=== PATIENT | male | born 1970 | race Caucasian/White ===

== ENCOUNTER 2023-06-29 08:16 | Emergency (ER) | payer BC, SELFPAY ==
[2023-06-29] VITALS (9 sets, daily range): BP systolic 142–180; BP diastolic 89–102; PULSE 55–62; RESP 16; TEMP 36.6; O2SAT 94–98; BMI 25.1
--- NOTE | 2023-06-29 08:20 | ED.CHESTPAIN ---
HPI - Chest Pain General Time Seen by Provider: 08:20 Date Seen: 06/29/23 Chief Complaint: Chest Pain Stated Complaint: chest pain, pain in L arm Time Seen by Provider: 06/29/23 08:20 Source: patient and RN notes reviewed Mode of arrival: ambulatory Limitations: no limitations History of Present Illness HPI narrative: Chang is a 52-year-old male coming in with concern of some chest discomfort coupled with bilateral arm pain. When he awoke at 4:00 a.m. this morning he noted bilateral arm discomfort and numbness tingling feeling. He states he moves about in his sleep, will sleep on his side sometimes. He had a similar episode about a week ago but it went away quickly. It is an achiness in the arms, not truly pain but a discomfort. He feels pain up into the shoulder area as with this. Seemed to last a little longer, with this this morning he had just a sense of discomfort in his upper chest. Symptoms seem to go away but then came back and now he just feels like he can not really Street in his right hand. Still has the arm sensation bilaterally. There is no sense of palpitations, no irregular heartbeat. No associated shortness of breath. There is no pleuritic pain with this. Not been sick with anything, no cough or cold symptoms, no fevers. He has hypertension, is on amlodipine. He does not take any cholesterol medicine, does not take any aspirin. His dad has hypertension but he is not aware of anybody in the family that has any history of cardiac disease like heart attack or stent placement, no history of strokes that he is aware of. He drinks socially, no alcohol use last night. No tobacco products. Related Data Home Medications Medication Instructions Recorded Confirmed amlodipine 06/29/23 Previous Rx's Medication Instructions Recorded methylprednisolone 4 mg tablets in See Rx Instructions PO .COMPLEX 06/29/23 a dose pack (Medrol (Joe)) #21 ea Allergies Allergy/AdvReac Type Severity Reaction Status Date / Time No Known Drug Allergies Allergy Verified 06/29/23 08:27 Review of Systems Status of ROS Reports: 6 or more systems reviewed and unremarkable except as noted in History and below PFSH PFSH Social History Smoking Status: Never smoker How often do you have a drink containing alcohol: 2-4 times a month How many standard drinks containing alcohol do you have on a typical day: 1 or 2 AUDIT-C Alcohol total score: 2 Non-prescribed substance use: denies use Exam Const Vital Signs, click to edit/add: Vital Signs - 24 hr 06/29/23 08:25 06/29/23 08:29 06/29/23 08:31 Temperature 97.9 F Pulse Rate 55 L 56 L Pulse Rate [Right Pulse Oximeter] 59 L Respiratory Rate 16 Blood Pressure [Right Upper Arm] 167/102 H Pulse Oximetry 97 98 97 Oxygen Delivery Method Room Air 06/29/23 08:58 06/29/23 11:07 Temperature Pulse Rate Pulse Rate [Right Pulse Oximeter] 60 58 L Respiratory Rate 16 16 Blood Pressure [Right Upper Arm] 180/100 H 142/89 H Pulse Oximetry 95 95 Oxygen Delivery Method Room Air Room Air Patient is a 52-year-old male ambulatory into the ED of his own accord. He is alert, interactive, no apparent distress. Symmetrical facial function, speech normal. Conjunctiva slightly injected but no periorbital erythema or swelling, no drainage noted. Neck is supple, no midline tenderness, no jugular venous distension, no cervical adenopathy or masses, no thyromegaly masses or nodules. Patient is able to sit up, he has clear lung sounds, no tachypnea, no increased work of breathing. CV regular rate and rhythm, no murmur, normal S1 and S2, no S3 or S4. Abdomen is soft, no rebound or guarding, no organomegaly, nontender nondistended. He has no lower extremity edema. His hands have symmetric warmth, good peripheral pulses, normal cap refill. He does have good hand cryptologic technician strength bilaterally but just feels like he cannot fully straighten his hand out with the fingers. I am able to put his fingers in full extension and he can hold it. Documenting provider has reviewed patient's vital signs: yes Course Course ED Course: First and foremost reviewed with Chang that we will certainly look at cardiac causes of his symptoms. Will give him 324 mg aspirin, obtain EKG, will be on cardiac monitoring and pulse oximetry. Will get appropriate labs. Other considerations are possible developing cervical issues. Will do a total CK but doubt that this is something like myositis. He is not on any cholesterol medicine. If his initial troponin and EKG are stable, may re-evaluate better musculoskeletal exam and consideration of potentially even some cervical spine x-rays. Reevaluation(s) Time of Reevaluation #1: 09:30 Reevaluation #1: Reviewed with patient his chest x-ray is looking normal, initial troponin is normal. He is still feeling a little upper chest discomfort, left arm symptoms are completely gone but he does feel some pain from his right neck that does go down into the left arm, states he really can not straighten his fingers out in his right hand. There is no numbness tingling at this point. He has good range of motion of his neck. He has normal sensation and warmth in this right extremity. I am able to straighten his fingers, he has symmetrical hand cryptologic technician strength, 5/5. He has symmetric strength throughout the arm except for he does not feel like he can extend his fingers fully throughout this right hand. He did actually go to work this morning, found that he could not type with his right hand. He did take his amlodipine this morning, did review with him his blood pressure is mildly elevated. I am going to touch base with Neurology at [facility]. I am wondering if this could potentially be radiculopathy, cervical in nature. It just does not seem to make sense that this would be a central process given he initially had some left arm symptoms with it as well. We will continue to look at coronary etiologies as well, he understands he will be having a 3 hour troponin and EKG. Consultations Consultation #1: Spoke with Dr. Dae Collins Neurology. He agrees that we should proceed with a cervical spine MRI. He agrees that we do not need to proceed with any stroke workup given that he had bilateral arm symptoms. We will push the imaging to him, I will contact him once this has been read by Radiology. We will make further plans based on that. I will update the patient on the plan. Time: 09:59 Consultation #2: Spoke with Dr. Pearl. He cannot see the images, will talk to Radiology. Did read him the report. He is going to consult on this patient and see him. Time: 13:12 Consultation #3: Dr. Pearl has had a chance to evaluate this patient. He is finding a right wrist drop. He states this is likely radial nerve/ulnar nerve distribution. It could be a brachial plexopathy, is certainly peripheral. There is a remote possibility of this being parsonage Mckeon syndrome. He did recommend Medrol Dosepak. He did ask if I would do vascular labs so they would be back when patient followed up with Neurology. We will add on a sed rate LOLITA hepatitis-B surface antigen hepatitis-C antibody Anca and rheumatoid factor. This was all related to the patient. Time: 14:30 Vital Signs Vital signs: Initial Vital Signs Temperature 97.9 F 06/29/23 08:25 Temperature Source Temporal Artery Scan 06/29/23 08:25 Pulse Rate 59 L 06/29/23 08:25 Pulse Rhythm Regular 06/29/23 08:25 Respiratory Rate 16 06/29/23 08:25 Blood Pressure 167/102 H 06/29/23 08:25 Blood Pressure Mean 123 H 06/29/23 08:25 Blood Pressure Position Sitting 06/29/23 08:25 Pulse Oximetry 97 06/29/23 08:25 Oxygen Delivery Method Room Air 06/29/23 08:25 Vital Signs Temperature 97.9 F 06/29/23 08:25 Pulse Rate 59 L 06/29/23 08:25 Respiratory Rate 16 06/29/23 08:25 Blood Pressure 167/102 H 06/29/23 08:25 Pulse Oximetry 97 06/29/23 08:25 Oxygen Delivery Method Room Air 06/29/23 08:25 Temperature 97.9 F 06/29/23 08:25 Pulse Rate 58 L 06/29/23 11:07 Respiratory Rate 16 06/29/23 11:07 Blood Pressure 142/89 H 06/29/23 11:07 Pulse Oximetry 95 06/29/23 11:07 Oxygen Delivery Method Room Air 06/29/23 11:07 MDM - Chest Pain Lab Data Attestation: I reviewed the patient's lab results. Labs: Lab Results 06/29/23 06/29/23 06/29/23 Range/Units 08:26 08:35 12:07 WBC 5.02 (4.50-11.00) K/uL RBC 5.36 (4.30-5.90) m/uL Hgb 17.0 (13.5-17.5) gm/dL Hct 49.3 (37.0-53.0) % MCV 92 (80-100) fL MCH 32 (26-34) pg MCHC 35 (32-36) gm/dL RDW Coeff of Ian 12.4 (11.5-15.5) % Plt Count 258 (140-440) K/uL Neut % (Auto) 51.3 (42.0-72.0) % Lymph % (Auto) 36.9 (20-44) % Anderson % (Auto) 8.0 (0.0-11.0) % Eos % (Auto) 3.2 (0.0-7.0) % Baso % (Auto) 0.4 (0.0-3.0) % Neut # (Auto) 2.58 (1.7-7.0) K/uL Lymph # (Auto) 1.85 (0.90-2.90) K/uL Anderson # (Auto) 0.40 (0.00-0.90) K/UL Eos # (Auto) 0.16 (0.00-0.50) K/uL Baso # (Auto) 0.02 (0.00-0.30) K/uL Abs Immat Gran (auto) 0.01 (0.00-0.30) K/uL Imm/Tot Granulo (auto) 0.2 % D-Dimer Quant (PE/DVT) < 0.27 (0.00-0.50) ug/ml Sodium 139 (135-149) mmol/L Potassium 3.9 (3.6-5.1) mmol/L Chloride 106 (96-114) mmol/L Carbon Dioxide 23 (20-32) mmol/L Anion Gap 10 (7-15) mEq/L BUN 16 (7-30) mg/dL Creatinine 0.9 (0.5-1.5) mg/dL Estimated Creat Clear 99.14 Estimated GFR 103 ml/min Glucose 97 (60-115) mg/dL Calcium 10.8 H (8.4-10.6) mg/dL Magnesium 2.3 (1.5-2.6) mg/dL Total Bilirubin 1.0 (0.1-1.5) mg/dL AST 51 H (12-35) U/L ALT 45 (4-50) U/L Alkaline Phosphatase 62 (40-150) U/L Total Creatine Kinase 97 (54-186) U/L C-Reactive Protein < 0.5 L (0.5-1.0) mg/dL NT-Pro-B Natriuret Pep < 20 pg/mL Total Protein 8.3 (6.0-8.3) g/dL Albumin 4.8 (3.3-5.0) g/dL POC Troponin I 0.00 L 0.00 L (0.01-0.04) ng/ml Imaging Data Chest x-ray: Attestation: I have reviewed the pertinent imaging results. My impression: I do not see any evidence of pneumothorax, no consolidation, normal heart size a my preliminary review of this chest x-ray. Radiologist's impression: Patient: CHANG PRUITT Facility:?[facility] Patient ID:?[id number] Site Patient ID:?[id number]. Site :?[id number] Study:?XRay Chest 1V PORTABLE-06/29/2023 8:53:37 AM Ordering Physician:?Julieta Doyle Final Report: INDICATION: Chest discomfort COMPARISON: None TECHNIQUE: Portable AP single view study FINDINGS: TUBES AND LINES: None. HEART AND MEDIASTINUM: The heart size is normal. The mediastinal contour appears normal for patient age. LUNGS AND PLEURAL SPACES: The lungs appear normal.The pleural spaces are unremarkable. OSSEOUS STRUCTURES: Age-appropriate appearance. No acute focal finding. IMPRESSION: No evidence of active pulmonary disease. Dictated by Franklin Hines MD @ 06/29/2023 8:59:35 AM (Electronic Signature) MR - Other: Attestation: I have reviewed the pertinent imaging results. Radiologist's impression: Patient: CHANG PRUITT Facility:?[facility] Patient ID:?[id number] Site Patient ID:?[id number]. Site :?[id number] Study:?MRI Spine Cervical W/O-06/29/2023 12:35:27 PM Ordering Physician:Shadi Doyle Final Report: INDICATION: Cervical radiculopathy, right-sided. TECHNIQUE: Multisequence MRI of the cervical spine without contrast. COMPARISON: None available. FINDINGS: Normal alignment. Vertebral body heights are maintained. Bone marrow signal intensity is within normal limits. There is mild disc desiccation and intervertebral disc height loss from C5-C7. Cervical spinal cord is normal in signal intensity. A subcentimeter left thyroid nodule is incidentally noted. Evaluation of the individual levels demonstrates: C2-C3: Small left paracentral disc protrusion. No significant spinal canal or neural foraminal stenosis. C3-C4: No significant spinal canal or right neural foraminal stenosis. Mild left neural foraminal narrowing from eccentric disc bulging and uncovertebral/facet arthrosis. C4-C5: No significant spinal canal or left neural foraminal stenosis. Mild right neural foraminal narrowing from uncovertebral/facet arthrosis. C5-C6: No significant spinal canal or right neural foraminal narrowing. Mild left neural foraminal narrowing from uncovertebral spurring. C6-C7: No significant spinal canal or neural foraminal stenosis. C7-T1: No significant spinal canal or neural foraminal stenosis. IMPRESSION: 1. Mild cervical spondylosis characterized largely by uncovertebral/facet joint hypertrophy and mild intervertebral disc height loss from C5-C7. 2. No high-grade spinal canal or neural foraminal stenosis to account for the patient`s symptoms. 3. Mild neural foraminal stenoses as referenced above. Dictated by Chang Koch MD @ 06/29/2023 12:56:09 PM (Electronic Signature) ECG Data Attestation: I personally reviewed and interpreted this ECG as follows: (Sinus bradycardia, 57 beats per minute. Flipped T-waves without any ST segment changes in lead 3 and V1. No evidence of any acute ischemia or infarct. QT corrected 416 milliseconds.) ECG interpretation date: 06/29/23 ECG interpretation time: 08:34 Interpretation: Repeat EKG at 12:01 p.m. shows sinus bradycardia with sinus rhythm at 54 beats per minute. No ischemic change. Discharge Plan Discharge Clinical Impression: Right wrist drop Patient Disposition: Home, Self-Care Condition: Stable Additional Instructions: Dr. Pearl the neurologist did have me add on some vasculitis labs which are pending. You need to get scheduled with outpatient Neurology for follow-up. He does want you to take the Medrol Dosepak, take as prescribed. He believes this to be idiopathic change in the peripheral nerve pathway causing right wrist drop/difficulty with your fingers. This could be from brachial plexus or further into the radial and ulnar nerve distribution. There is a remote possibility that this could be parsonage Mckeon syndrome. The follow-up with Neurology will be needed to help further delineate diagnosis. You will need to work through your primary care provider to get scheduled for Neurology. Activity Level: Activity as Tolerated Prescriptions: New methylprednisolone [Medrol (Joe)] 4 mg tablets,dose pack See Rx Instructions .ROUTE .COMPLEX Qty: 21 0RF Rx Instructions: orally per package directions No Action amlodipine Follow Up/Referrals: Provider,Not a Local [Primary Care Provider] - Stand Alone Forms: MyHealth Info Instructions
--- NOTE | 2023-06-29 08:26 | CRLHL7_ITS ---
For Patients: As a result of the Cures Act, medical imaging exams and procedure reports are released immediately into your electronic medical record. You may view this report before your referring provider. If you have questions, please contact your health care provider. INDICATION: Chest discomfort COMPARISON: None TECHNIQUE: Portable AP single view study FINDINGS: TUBES AND LINES: None. HEART AND MEDIASTINUM: The heart size is normal. The mediastinal contour appears normal for patient age. LUNGS AND PLEURAL SPACES: The lungs appear normal.The pleural spaces are unremarkable. OSSEOUS STRUCTURES: Age-appropriate appearance. No acute focal finding. IMPRESSION: No evidence of active pulmonary disease. Dictated by Franklin Hines MD @ 06/29/2023 8:59:35 AM (Electronically Signed)
[2023-06-29] MEDS: ASPIRIN 81 MG TAB.CHEW 324 MG PO (08:38)
[2023-06-29 08:46] LABS: Basophils Absolute Auto 0.02 K/uL (0.00-0.30); Basophils Percent Auto 0.4 % (0.0-3.0); Eosinophils Absolute Auto 0.16 K/uL (0.00-0.50); Eosinophils Percent Auto 3.2 % (0.0-7.0); Hematocrit 49.3 % (37.0-53.0); Immature Granulocytes Abs Auto 0.01 K/uL (0.00-0.30); Immature Granulocytes Pct Auto 0.2 %; Lymphocytes Absolute Auto 1.85 K/uL (0.90-2.90); Lymphocytes Percent Auto 36.9 % (20-44); Mean Corpuscular HGB Conc 35 gm/dL (32-36); Mean Corpuscular Hemoglobin 32 pg (26-34); Mean Corpuscular Volume 92 fL (80-100); Neutrophils Absolute Auto 2.58 K/uL (1.7-7.0); Neutrophils Percent Auto 51.3 % (42.0-72.0); Platelet Count* 258 K/uL (140-440); RDW Coefficient of Variation % 12.4 % (11.5-15.5); Red Blood Count 5.36 m/uL (4.30-5.90); Slide Review Reflex No; White Blood Count* 5.02 K/uL (4.50-11.00)
[2023-06-29 09:10] LABS: D Dimer Quantitative* < 0.27 ug/ml (0.00-0.50)
[2023-06-29 09:15] LABS: Chloride* 106 mmol/L (96-114)
[2023-06-29 09:16] LABS: Albumin* 4.8 g/dL (3.3-5.0); Sodium* 139 mmol/L (135-149)
[2023-06-29 09:17] LABS: Potassium* 3.9 mmol/L (3.6-5.1)
[2023-06-29 09:18] LABS: Creatinine* 0.9 mg/dL (0.5-1.5); Est. Creatinine Clearance* 99.14; Estimated Glomerular Filt Rate 103 ml/min
[2023-06-29 09:19] LABS: Alanine Aminotransferase* 45 U/L (4-50); Alkaline Phosphatase* 62 U/L (40-150); Anion Gap 10 mEq/L (7-15); Aspartate Amino Transferase* 51 U/L (12-35); Blood Urea Nitrogen* 16 mg/dL (7-30); Carbon Dioxide* 23 mmol/L (20-32); Creatine Kinase* 97 U/L (54-186); Total Protein* 8.3 g/dL (6.0-8.3)
[2023-06-29 09:20] LABS: Calcium* 10.8 mg/dL (8.4-10.6); Glucose* 97 mg/dL (60-115); Magnesium* 2.3 mg/dL (1.5-2.6)
[2023-06-29 09:29] LABS: C Reactive Protein* < 0.5 mg/dL (0.5-1.0); NT Pro B Type NatriureticPept* < 20 pg/mL
--- NOTE | 2023-06-29 09:57 | CRLHL7_ITS ---
For Patients: As a result of the Century Cures Act, medical imaging exams and procedure reports are released immediately into your electronic medical record. You may view this report before your referring provider. If you have questions, please contact your health care provider. INDICATION: Cervical radiculopathy, right-sided. TECHNIQUE: Multisequence MRI of the cervical spine without contrast. COMPARISON: None available. FINDINGS: Normal alignment. Vertebral body heights are maintained. Bone marrow signal intensity is within normal limits. There is mild disc desiccation and intervertebral disc height loss from C5-C7. Cervical spinal cord is normal in signal intensity. A subcentimeter left thyroid nodule is incidentally noted. Evaluation of the individual levels demonstrates: C2-C3: Small left paracentral disc protrusion. No significant spinal canal or neural foraminal stenosis. C3-C4: No significant spinal canal or right neural foraminal stenosis. Mild left neural foraminal narrowing from eccentric disc bulging and uncovertebral/facet arthrosis. C4-C5: No significant spinal canal or left neural foraminal stenosis. Mild right neural foraminal narrowing from uncovertebral/facet arthrosis. C5-C6: No significant spinal canal or right neural foraminal narrowing. Mild left neural foraminal narrowing from uncovertebral spurring. C6-C7: No significant spinal canal or neural foraminal stenosis. C7-T1: No significant spinal canal or neural foraminal stenosis. IMPRESSION: 1. Mild cervical spondylosis characterized largely by uncovertebral/facet joint hypertrophy and mild intervertebral disc height loss from C5-C7. 2. No high-grade spinal canal or neural foraminal stenosis to account for the patient`s symptoms. 3. Mild neural foraminal stenoses as referenced above. Dictated by Sal Koch MD @ 06/29/2023 12:56:09 PM (Electronically Signed)
[2023-06-29 16:47] LABS: Erythrocyte SedimentationRate* 2 mm/hr (2-15)
[2023-06-29 20:30] LABS: Hepatitis B Surface Antigen* Negative (Negative)
[2023-06-29 20:47] LABS: Hepatitis C Virus Antibody* Negative (Negative)
[2023-07-02 07:38] LABS: Anti-Nuclear Ab(ANA)IgG ELISA None Detected (None Detected)
[2023-07-02 10:48] LABS: Rheumatoid Factor 26 IU/mL (0-14)
[2023-07-05 07:54] LABS: ANCA IFA Pattern None Detected (None Detected); ANCA IFA Titer <1:20 (<1:20); Myeloperoxidase (MPO) Ab, IgG 0 AU/mL (0-19); Serine Proteinase 3 Ab IgG 1 AU/mL (0-19)
== END 2023-06-29 14:49 | disposition home or self-care (01) ==
PROVIDERS: Emergency Provider Family Medicine
DX: M21.331 Wrist drop, right wrist (principal)
CPT/HCPCS: 36415; 71045; 72141; 80053; 82550; 83036; 83516; 83735; 83880; 84484; 85025; 85379; 85651; 86039; 86140; 86431; 86803; 87340; 87341; 93005; 94761; 99284; 99285; G0427; A9270

== ENCOUNTER 2025-03-11 15:26 | Emergency (ER) | payer BC, SELFPAY ==
--- OUTSIDE RECORDS SUMMARY | 2025-03-11 15:28 | XMS_ITS | Clinical Summary ---
Author Organization [facility] Address [address] [place] [address] Care Team Providers Care Head Of Operation And Logistics Name Role Phone German Black MD Primary Care Provider German Black MD Unavailable Allergies Active Allergy Reactions Criticality Noted Date Comments No Known Drug Allergy 12/29/2003 Medications amLODIPine (NORVASC) 10 MG tabletIndications :Essential hypertension Take 1 tablet (10 mg) by mouth daily 90 tablet 4 04/22/2024 Active Active Problems Problem Noted Date Diagnosed Date Prediabetes 08/09/2019 Mixed hyperlipidemia 11/07/2012 Overview (07/06/2015): Diagnosis updated by automated process. Provider to review and confirm. CARDIOVASCULAR SCREENING; LDL GOAL LESS THAN 160 07/04/2010 Encounters Date Type Department Care Team Description 01/28/2025 [facility] Medical Advice [facility] [id number] [place] [phone] German Black MD MyChart Communication from Last 3 Months Immunizations Immunization Administration Dates Next Due COVID-19 Monovalent 18+ (Moderna) 09/27/2021 TDAP (Adacel,Boostrix) 06/30/2020 TDAP Vaccine (Adacel) 03/09/2010 Tetanus 10/21/1998 Family History Medical History Relation Comments No Known Problems Brother Hyperlipidemia Father Hypertension Father Lung Cancer Mother smoker- chemo Other Cancer Mother Life long smoker Thyroid Disease Mother Colon Cancer Other Cancer - colorectal Paternal Uncle Heart Disease No family hx of Relation Status Comments Brother Alive Father Alive Maternal Grandfather Maternal Grandmother Mother Alive Other Paternal Grandfather Paternal Grandmother Paternal Uncle Social History Tobacco Use Types Packs/Day Years Used Date Smoking Tobacco: Never Passive Smoke Exposure: Never Smokeless Tobacco: Never Tobacco Cessation:Counseling Given: Not Answered Alcohol Use Standard Drinks/Week Comments Yes 0 (1 standard drink = 0.6 oz pur e alcohol) occ PHQ-2 Answer Date Recorded PHQ-2 Score 0 04/22/2024 Adolescent Education Answer Date Record ed Getting School Help Needed Not on file 06/03 Food Insecurity Answer Date Recorded Within the past 12 months, d id you worry that your food would run out before you got money to buy more? No 07/03/2023 Within the past 12 months, d id the food you bought just not last and you didn t have money to get more? No 07/03/2023 Housing Stability Answer Date Recorded Do you have housing? (Kiain g is defined as stable permanent housing and does not include staying outside in a car, in a tent, in an abandoned building, in an overnight assisted, or couch-surfing.) Yes 07/03/2023 Are you worried about losing your housing? No 07/03/2023 Financial Resource Strain Answer Date R ecorded Within the past 12 months, h ave you or your family members you live with been unable to get utilities (heat, electricity) when it was really needed? No 07/03/2023 Transportation Needs Answer Date Record ed Within the past 12 months, h as lack of transportation kept you from medical appointments, getting your medicines, non-medical meetings or appointments, work, or from getting things that you need? 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 Gender Identity Male 05/25/2020 5:59 AM CDT Sexual Orientation Straight 05/25/2020 5: 59 AM CDT Last Filed Vital Signs Vital Sign Reading Time Taken Comments Blood Pressure 137/84 12/29/2022 1:43 PM CDT Pulse 65 12/29/2022 1:40 PM CDT Temperature 37.2 C (98.9 F) 12/29/2022 1:40 PM CDT Respiratory Rate 16 12/29/2022 1:40 PM CDT Oxygen Saturation 97% 12/29/2022 1:40 PM CDT Inhaled Oxygen Concentration - - Weight 80.3 kg (177 lb) 12/29/2022 1:40 PM CDT Height 177.8 cm (5' 10) 09/14/2021 7:53 AM MOTORBOAT OPERATOR Body Mass Index 25.4 09/14/2021 7:53 AM MOTORBOAT OPERATOR Plan of Treatment Health Maintenance Due Date Last Done Comments ADVANCE CARE PLANNING 1970 CT COLONOGRAPHY 1970 FIT 1970 FLEX SIG 1970 sDNA (Cologuard) 1970 HEPATITIS B VACCINE (1 of 3 - 19+ 3-dose series) 1989 PNEUMOCOCCAL VACCINE 50+ YEARS (1 of 1 - PCV) 2020 ZOSTER VACCINE (1 of 2) 2020 LIPID 06/30/2021 06/30/2020, 12/2018, 11/07/2012 YEARLY PREVENTIVE VISIT 06/30/2021 06/30/20 20, 08/07/2019, 11/07/2012, Additional history exists BMP 12/30/2023 12/29/2022, 03/2021, 06/30/2020, Additional history exists COVID-19 VACCINE ( season) 2024 08/22/2022, 09/27/2021, 01/12/2021, Additional history exists PHQ-2 (once per calendar year) 2024 04/22/2024, 12/29/2022, 06/10/2021, Additional history exists ANNUAL REVIEW OF HM ORDERS 04/22/2025 04/22/2024, INFLUENZA VACCINE (Season Ended) 2025 DIABETES SCREENING 06/29/2026 06/29/2023, 0 12/29/2022, 06/10/2021, Additional history exists DTAP/TDAP/TD VACCINE (3 - Td or Tdap) 06/30/2030 06/30/2020, 03/09/2010, 10/21/1998 COLONOSCOPY 09/14/2031 09/14/2021, 09/14/2021 COLORECTAL CANCER SCREENING 09/14/2031 HIV SCREENING Completed 06/30/2020 HEPATITIS C SCREENING Completed 06/29/2023 HPV VACCINE Aged Out No longer eligi ble based on patient's age to complete this topic MENINGITIS VACCINE Aged Out No longer eligible based on patient's age to complete this topic Procedures Procedure Name Priority Date/Time Associated Diagnosis Comments GLUCOSE (EXTERNAL RESULT) Routine 06/29/2023 8:35 AM CDT HEPATITIS C (HIM EXTERNAL RESULT) Routine 06/29/2023 8:35 AM CDT BASIC METABOLIC PANEL Routine 12/29/2022 2:10 PM CDT Essential hypertension COLONOSCOPY Routine 09/14/2021 8:12 AM MOTORBOAT OPERATOR HIV ANTIGEN ANTIBODY COMBO Routine 06/30/2020 7:50 AM CDT Screening for HIV (human immunodeficiency virus) LIPID REFLEX TO DIRECT LDL PANEL Routine 06/30/2020 7:50 AM CDT Routine general medical examination at a health care facility from Last 3 Months or Most Recently Relevant to Health Maintenance Results * Glucose (External Result) (06/29/2023 8:35 AM CDT) Glucose (External) 97 60 - 115 mg/dL [facility] Blood 06/29/2023 8:35 AM CDT Narrative [facility] - 06/29/2023 8:35 AM CDT [facility] RESULT us Provider Outside LAB - HIM EXTERNAL RESULT Final Result [facility] [address] [place] [address], [facility] [phone] * Hepatitis C (HIM External Result) (06/29/2023 8:35 AM CDT) Hep C HIM See Scanned Document [facility] 06/29/2023 8:35 AM CDT Narrative [facility] - 06/29/2023 8:35 AM CDT [facility] RESULT us Provider Outside LAB - HIM EXTERNAL RESULT Final Result [facility] [address] [place] [address], [facility] [phone] * (ABNORMAL) Basic metabolic panel (Ca, Cl, CO2, Creat, Gluc, K, Na, BUN) (12/29/2022 2:10 PM CDT) [facility] Sodium 138 136 - 145 mmol/L 12/30/2022 3:24 AM CDT [facility] Potassium 4.8 3.4 - 5.3 mmol/L 12/30/2022 3:24 AM CDT [facility] Chloride 102 98 - 107 mmol/L 12/30/2022 3:24 AM CDT [facility] Carbon Dioxide (CO2) 22 22 - 29 mmol/L 12/30/2022 3:24 AM CDT [facility] Anion Gap 14 7 - 15 mmol/L 12/30/2022 3:24 AM CDT [facility] Urea Nitrogen 22.2(H) 6.0 - 20.0 mg/dL 12/30/2022 3:24 AM CDT [facility] Creatinine 1.16 0.67 - 1.17 mg/dL 12/30/2022 3:24 AM CDT [facility] Calcium 10.0 8.6 - 10.0 mg/dL 12/30/2022 3:24 AM CDT [facility] Glucose 89 70 - 99 mg/dL 12/30/2022 3:24 AM CDT [facility] GFR Estimate 76 >60 mL/min/1.7 3m2 12/30/2022 3:24 AM CDT [facility] Comment:eGFR calculated 2020 CKD-EPI equation. Blood BLOOD SPECIMEN / Unknown Venipuncture / Unknown 12/29/2022 2:10 PM CDT 12/29/2022 2:10 PM CDT us German Black MD LAB - BLOOD ORDERABLES Final Res ult [facility] [address] [facility], [address] [place] [phone], [facility] [phone] * COLONOSCOPY (09/14/2021 8:12 AM MOTORBOAT OPERATOR) [facility] Signature COLONOSCOPY [facility] ___ Patient Name: Sal Anna Procedure Date: 09/14/2021 8:12 AM Date of : 1970 Admit Type: Outpatient Age: 50 Gender: Male Attending MD: Marshall Oviedo MD Total Sedation Time: 12_minutes continuous bedside 1:1 Instrument Name: 224 - Adult Colonoscope ___ Procedure: Colonoscopy Indications: Screening for colorectal malignant neoplasm Providers: Marshall Oviedo MD (Doctor) Referring MD: Medicines: Midazolam 2 mg IV, Fentanyl 100 micrograms IV Complications: No immediate complications. ___ Procedure: Pre-Anesthesia Assessment: - Prior to the procedure, a History and Physical was performed, and patient medications and allergies were reviewed. The patient is competent. The risks and benefits of the procedure and the sedation options and risks were discussed with the patient. All questions were answered and informed consent was obtained. Patient identification and proposed procedure were verified by the physician in the procedure room. Mental Status Examination: alert and oriented. Airway Examination: normal oropharyngeal airway and neck mobility. Respiratory Examination: clear to auscultation. CV Examination: normal. Prophylactic Antibiotics: The patient does not require prophylactic antibiotics. Prior Anticoagulants: The patient has taken no anticoagulant or antiplatelet agents. ASA Grade Assessment: II - A patient with mild systemic disease. After reviewing the risks and benefits, the patient was deemed in satisfactory condition to undergo the procedure. The anesthesia plan was to use moderate sedation / analgesia (conscious sedation). Immediately prior to administration of medications, the patient was re-assessed for adequacy to receive sedatives. The heart rate, respiratory rate, oxygen saturations, blood pressure, adequacy of pulmonary ventilation, and response to care were monitored throughout the procedure. The physical status of the patient was re-assessed after the procedure. After obtaining informed consent, the colonoscope was passed under direct vision. Throughout the procedure, the patient's blood pressure, pulse, and oxygen saturations were monitored continuously. The Olympus Adult Colonoscope, Model # CF-[id number], [place]ora # 224, SN # [id number] was introduced through the anus and advanced to the cecum, identified by the ileocecal valve. The colonoscopy was performed without difficulty. The patient tolerated the procedure well. The quality of the bowel preparation was good. Anatomical landmarks were photographed. Findings: The perianal and digital rectal examinations were normal. The entire examined colon appeared normal on direct and retroflexion views. Moderate Sedation: Moderate (conscious) sedation was administered by the endoscopy nurse and supervised by the endoscopist. The following parameters were monitored: oxygen saturation, heart rate, blood pressure, respiratory rate, EKG, adequacy of pulmonary ventilation, and response to care. Total physician intraservice time was 12 minutes. Impression: - The entire examined colon is normal on direct and retroflexion views. - No specimens collected. Recommendation: - Repeat colonoscopy in 10 years for screening purposes. Procedure Code(s): --- Professional --- G0121, Colorectal cancer screening; colonoscopy on individual not meeting criteria for high risk G0500, Moderate sedation services provided by the same physician or other qualified health body care manager performing a gastrointestinal endoscopic service that sedation supports, requiring the presence of an independent trained observer to assist in the monitoring of the patient's level of consciousness and physiological status; initial 15 minutes of intra-service time; patient age 5 years or older (additional time may be reported with [address], as appropriate) Diagnosis Code(s): --- Professional --- Z12.11, Encounter for screening for malignant neoplasm of colon CPT copyright 2020 [employer]. All rights reserved. The codes documented in this report are preliminary and upon lumber racker review may be revised to meet current compliance requirements. Electronically signed by Marshall Oviedo MD _ Marshall Oviedo MD 09/14/2021 8:51:03 AM I was physically present for the entire viewing portion of the exam. Marshall Oviedo MD Number of Addenda: 0 Note Initiated On: 09/14/2021 8:12 AM Procedure Date: 09/14/2021 8:12:50 AM Scope Withdrawal Time: 0 hours 6 minutes 6 seconds Total Procedure Duration: 0 hours 9 minutes 15 seconds Estimated Blood Loss: Scope In: 8:38:48 AM Scope Out: 8:48:03 AM RADIOLOGY RESULTS 09/14/2021 8:12 AM MOTORBOAT OPERATOR us Marshall Oviedo MD PROCEDURES Final Result Performing Organization Address [facility] Co de Phone Number RADIOLOGY RESULTS * HIV Antigen Antibody Combo (06/30/2020 7:50 AM CDT) HIV Antigen Antibody Combo Nonreactive NR^Nonrea ctive 06/30/2020 5:[address] [facility] Comment:HIV-1 p24 Ag & HIV-1 /HIV-2 Ab Not Detected Blood specimen (specimen) 06/30/2020 7:50 AM CDT 06/30/2020 7:51 AM CDT us German Black MD LAB - BLOOD ORDERABLES Final Res ult Performing Organization Address City/[facility]/ZIP Co de Phone Number [facility] [address] [place] [address] * (ABNORMAL) Lipid panel reflex to direct LDL Fasting (06/30/2020 7:50 AM CDT) Cholesterol 254(H) <200 mg/dL 07/01/2020 2:20 PM CDT [facility] Comment:Desirable: <200 mg/d l Triglycerides 150(H) <150 mg/dL 07/01/2020 2:20 PM CDT [facility] Comment: Borderline high: 150-199 mg/dl High: 200-499 mg/dl Very high: >499 mg/dl HDL Cholesterol 58 >39 mg/dL 0 2:20 PM CDT [facility] LDL Cholesterol Calculated 166(H) <100 mg/dL 07/01/2020 2:20 PM CDT [facility] Comment: Above desirable: 100-129 mg/dl Borderline High: 130-159 mg/dL High: 160-189 mg/dL Very high: >189 mg/dl Non HDL Cholesterol 196(H) <130 mg/dL 07/01/2020 2:20 PM CDT [facility] Comment: Above Desirable: 130-159 mg/dl Borderline high: 160-189 mg/dl High: 190-219 mg/dl Very high: >219 mg/dl Blood specimen (specimen) 06/30/2020 7:50 AM CDT 06/30/2020 7:51 AM CDT us German Black MD LAB - BLOOD ORDERABLES Final Res ult [facility] [address] [place] [address] from Last 3 Months or Most Recently Relevant to Health Maintenance Insurance [place] Care Teams Head Of Operation And Logistics Relationship Specialty [place] [address] [place] [address] PCP - General Family Practice 05/14/20 [place] [address] [place] [address] Assigned PCP 05/31/20
--- OUTSIDE RECORDS SUMMARY | 2025-03-11 15:28 | XMS_ITS | Encounter Summary ---
Author Organization [facility] Address [address] [place] [address] Care Team Providers Care Warp Drawer Name Role Phone German Balck MD Primary Care Provider German Black MD Unavailable Encounter Details Date Type Department Care Team (Late st Contact Info) Description 07/07/2020 MyC Medical Advice [facility] [address] [place] [phone] [place] [id number] [place] [address] Social History Tobacco Use Types Packs/Day Years Used Date Smoking Tobacco: Never Smokeless Tobacco: Never Alcohol Use Standard Drinks/Week Comments Yes 0 (1 standard drink = 0.6 oz pur e alcohol) occ PHQ-2 Answer Date Recorded PHQ-2 Score 0 06/30/2020 Sex and Gender Information Value Date Recorded Sex Assigned at Male 05/25/2020 5:59 AM CDT 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 No / Unsure 06/30/2020 6:52 AM CDT documented as of this encounter Plan of Treatment Not on file documented as of this encounter Visit Diagnoses Not on filedocumented in this encounter Care Teams Warp Drawer Relationship Specialty [place] [address] [place] [address] PCP - General Family Practice 05/14/20 [place] [address] [place] [address] Assigned PCP 05/31/20 documented as of this encounter
--- OUTSIDE RECORDS SUMMARY | 2025-03-11 15:28 | XMS_ITS | Encounter Summary ---
Author Organization [facility] Address [address] [place] [address] Care Team Providers Care Kaiako Kura Tuarua Name Role Phone German Black MD Primary Care Provider [phone] German Black MD Unavailable Reason for Visit * Reason Onset Date Comments Patient/info Update 07/05/2021 Encounter Details Date Type Department Care Team (Late st Contact Info) Description 07/05/2021 MyC Medical Advice [address] [phone] German Black MD [address] [place] [address] Patient/info Update Social History Tobacco Use Types Packs/Day Years Used Date Smoking Tobacco: Never Smokeless Tobacco: Never Alcohol Use Standard Drinks/Week Comments Yes 0 (1 standard drink = 0.6 oz pur e alcohol) occ PHQ-2 Answer Date Recorded PHQ-2 Score 0 06/10/2021 Sex and Gender Information Value Date Recorded Sex Assigned at Male 05/25/2020 5:59 AM CDT 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 No / Unsure 06/10/2021 2:17 PM CDT documented as of this encounter Miscellaneous Notes * Telephone Encounter - Frank Iyer RN - 07/06/2021 1:30 PM CDT Pt informed of provider recommendations below. Frank Miranda RN * Telephone Encounter - German Black MD - 07/06/2021 11:45 AM CDT Recommend starting Norvasc, Rx sent, please schedule follow up in 1 month. STEVE * Telephone Encounter - Frank Iyer RN - 07/06/2021 7:45 AM CDT Please see pt [employer] message and attachments regarding recent BP readings. Per office visit on 06/10/21 with Robert pt was to update provider via [employer]. Please review and advise. Frank Miranda RN documented in this encounter Plan of Treatment Not on file documented as of this encounter Visit Diagnoses Diagnosis Essential hypertension- Primary Unspecified essential hypertension documented in this encounter Care Teams Kaiako Kura Tuarua Relationship Specialty [place] [address] [place] [address] PCP - General Family Practice 05/14/20 [place] [address] [place] [address] Assigned PCP 05/31/20 documented as of this encounter
--- OUTSIDE RECORDS SUMMARY | 2025-03-11 15:28 | XMS_ITS | Encounter Summary ---
Author Organization [facility] Address [address] [place] [address] Care Team Providers Care Forest Aide Name Role Phone German Black MD Primary Care Provider German Black MD Unavailable Encounter Details Date Type Department Care Team (Late st Contact Info) Description 04/13/2021 MyC Medical Advice [address] [phone] Candy Ta Social History Tobacco Use Types Packs/Day Years Used Date Smoking Tobacco: Never Smokeless Tobacco: Never Alcohol Use Standard Drinks/Week Comments Yes 0 (1 standard drink = 0.6 oz pur e alcohol) occ PHQ-2 Answer Date Recorded PHQ-2 Score 0 06/30/2020 Sex and Gender Information Value Date Recorded Sex Assigned at Male 05/25/2020 5:59 AM CDT Legal Sex Male 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
--- OUTSIDE RECORDS SUMMARY | 2025-03-11 15:28 | XMS_ITS | Encounter Summary ---
Author Organization [facility] Address [address] [place] [address]. [place] [address] Care Team Providers Care Chief Engineer Name Role Phone German Black MD Primary Care Provider German Black MD Unavailable Reason for Visit * Reason Onset Date Comments MyChart Communication 01/28/2025 Encounter Details Date Type Department Care Team (Latest Contact Info) Description 01/28/2025 MyC Medical Advice [address] [phone] German Black MD [address] [place] [address] MyChart Communication Social History Tobacco Use Types Packs/Day Years Used Date Smoking Tobacco: Never Passive Smoke Exposure: Never Smokeless Tobacco: Never Alcohol Use Standard [...] Answer Date Recorded Do you have housing? 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
--- OUTSIDE RECORDS SUMMARY | 2025-03-11 15:28 | XMS_ITS | Encounter Summary ---
Author Organization [facility] Address [address] [place] [address] Care Team Providers Care Food Checkers And Cashiers Supervisor Name Role Phone German Black MD Primary Care Provider [phone] German Black MD Unavailable Encounter Details Date Type Department Care Team (Late st Contact Info) Description 07/03/2020 MyC Medical Advice [address] [phone] [place] [id number] [place] [address] Social History Tobacco Use Types Packs/Day Years Used Date Smoking Tobacco: Never Smokeless Tobacco: Never Alcohol Use Standard Drinks/Week Comments Yes 0 (1 standard drink = 0.6 oz pur e alcohol) occ PHQ-2 Answer Date Recorded PHQ-2 Score 0 06/30/2020 Sex and Gender Information Value Date Recorded Sex Assigned at Male 05/25/2020 5:59 AM CDT 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
--- OUTSIDE RECORDS SUMMARY | 2025-03-11 15:28 | XMS_ITS | Encounter Summary ---
Author Organization [facility] Address [address] [place] [address] Care Team Providers Care Ordnance Technician Name Role Phone German Black MD Primary Care Provider German Black MD Unavailable Encounter Details Date Type Department Care Team (Late st Contact Info) Description 09/01/2021 MyC Medical Advice Initial Department [facility] Social History Tobacco Use Types Packs/Day Years Used Date Smoking Tobacco: Never Smokeless Tobacco: Never Alcohol Use Standard Drinks/Week Comments Yes 0 (1 standard drink = 0.6 oz pur e alcohol) occ PHQ-2 Answer Date Recorded PHQ-2 Score 0 06/10/2021 Sex and Gender Information Value Date Recorded Sex Assigned at Male 05/25/2020 5:59 AM CDT 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
--- OUTSIDE RECORDS SUMMARY | 2025-03-11 15:28 | XMS_ITS | Encounter Summary ---
Author Organization [facility] Address [address] [place] [address] Care Team Providers Care Combine Inspector Name Role Phone German Black MD Primary Care Provider [phone] German Black MD Unavailable Encounter Details Date Type Department Care Team (Late st Contact Info) Description 11/28/2022 MyC Medical Advice [address] [phone] Landy Cuellar MA Social History Tobacco Use Types Packs/Day Years Used Date Smoking Tobacco: Never Smokeless Tobacco: Never Alcohol Use Standard Drinks/Week Comments Yes 0 (1 standard drink = 0.6 oz pur e alcohol) occ PHQ-2 Answer Date Recorded PHQ-2 Score 0 06/10/2021 Sex and Gender Information Value Date Recorded Sex Assigned at Male 05/25/2020 5:59 AM CDT 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
--- OUTSIDE RECORDS SUMMARY | 2025-03-11 15:28 | XMS_ITS | Encounter Summary ---
Author Organization [facility] Address [address] [place] [address] Care Team Providers Care Hot Mill Shearer Name Role Phone German Black MD Primary Care Provider [phone] German Black MD Unavailable Encounter Details Date Type Department Care Team (Late st Contact Info) Description 08/31/2022 MyC Medical Advice [address] [phone] Candy Ta Social History Tobacco Use Types Packs/Day Years Used Date Smoking Tobacco: Never Smokeless Tobacco: Never Alcohol Use Standard Drinks/Week Comments Yes 0 (1 standard drink = 0.6 oz pur e alcohol) occ PHQ-2 Answer Date Recorded PHQ-2 Score 0 06/10/2021 Sex and Gender Information Value Date Recorded Sex Assigned at Male 05/25/2020 5:59 AM CDT 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
--- OUTSIDE RECORDS SUMMARY | 2025-03-11 15:28 | XMS_ITS | Encounter Summary ---
Author Organization [facility] Address [address] [place] [address] Care Team Providers Care Operator Specialist Communications Name Role Phone German Black MD Primary Care Provider German Black MD Unavailable Encounter Details Date Type Department Care Team (Late st Contact Info) Description 12/07/2022 MyC Medical Advice [address] [phone] [place] [id number] [place] [address] [id number] Social History Tobacco Use Types Packs/Day Years Used Date Smoking Tobacco: Never Smokeless Tobacco: Never Alcohol Use Standard Drinks/Week Comments Yes 0 (1 standard drink = 0.6 oz pur e alcohol) occ PHQ-2 Answer Date Recorded PHQ-2 Score 0 06/10/2021 Sex and Gender Information Value Date Recorded Sex Assigned at Male 05/25/2020 5:59 AM CDT 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
--- OUTSIDE RECORDS SUMMARY | 2025-03-11 15:28 | XMS_ITS | Encounter Summary ---
Author Organization [facility] Address [address] [place] [address] Care Team Providers Care Camera Maker Name Role Phone German Black MD Primary Care Provider [phone] German Black MD Unavailable Encounter Details Date Type Department Care Team (Late st Contact Info) Description 06/22/2021 MyC Medical Advice [facility] [id number] [place] [phone] German Black [place] [id number] [place] [address] Social History Tobacco Use Types Packs/Day Years Used Date Smoking Tobacco: Never Smokeless Tobacco: Never Alcohol Use Standard Drinks/Week Comments Yes 0 (1 standard drink = 0.6 oz pur e alcohol) occ PHQ-2 Answer Date Recorded PHQ-2 Score 0 06/10/2021 Sex and Gender Information Value Date Recorded Sex Assigned at Male 05/25/2020 5:59 AM CDT 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 No / Unsure 06/10/2021 2:17 PM CDT documented as of this encounter Plan of Treatment Not on file documented as of this encounter Visit Diagnoses Not on filedocumented in this encounter Care Teams Camera Maker Relationship Specialty [place] [address] [place] [address] PCP - General Family Practice 05/14/20 [place] [address] [place] [address] Assigned PCP 05/31/20 documented as of this encounter
--- OUTSIDE RECORDS SUMMARY | 2025-03-11 15:28 | XMS_ITS | Encounter Summary ---
Author Organization [facility] Address [address] [place] [address]. 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
--- OUTSIDE RECORDS SUMMARY | 2025-03-11 15:28 | XMS_ITS | Encounter Summary ---
Author Organization [facility] Address [address] [place] [address] Care Team Providers Care Inside Sales Representative Name Role Phone German Black MD Primary Care Provider [phone] German Black MD Unavailable Encounter Details Date Type Department Care Team (Late st Contact Info) Description 06/25/2020 MyC Medical Advice [address] [phone] Ailyn Shaw RN Social History Tobacco Use Types Packs/Day Years Used Date Smoking Tobacco: Never Smokeless Tobacco: Never Alcohol Use Standard Drinks/Week Comments Yes 0 (1 standard drink = 0.6 oz pur e alcohol) occ PHQ-2 Answer Date Recorded PHQ-2 Score 0 08/07/2019 Sex and Gender Information Value Date Recorded Sex Assigned at Male 05/25/2020 5:59 AM CDT 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
--- OUTSIDE RECORDS SUMMARY | 2025-03-11 15:28 | XMS_ITS | Clinical Summary ---
Author Organization [facility] Address [address] [address] Phone Care Team Providers Care Paediatric Surgeon Name Role Phone Unavailable Primary Care Provider Unavailabl e Allergies No known active allergies Medications No known medications Social History Tobacco Use Types Packs/Day Years Used Date Smoking Tobacco: Never Alcohol Use Standard Drinks/Week Comments Yes 0 (1 standard drink = 0.6 oz pur e alcohol) AUDIT-C Answer Date Recorded Q1: How often do you have a drink containing alc ohol? 2-4 times a month 05/13/2020 Average Number of Drinks Not on file 020 Frequency of Binge Drinking Not on file 05/2020 Sex and Gender Information Value Date Recorded Sex Assigned at Not on file Legal Sex Male 8:34 PM CDT Gender Identity Not on file Sexual Orientation Not on file Obstetrics History Last Filed Vital Signs Vital Sign Reading Time Taken Comments Blood Pressure 141/85 05/13/2020 8:57 PM CDT Pulse 81 05/13/2020 8:57 PM CDT Temperature 36.7 C (98.1 F) 05/13/2020 8:42 PM CDT Respiratory Rate 23 05/13/2020 8:57 PM CDT Oxygen Saturation 94% 05/13/2020 8:57 PM CDT Inhaled Oxygen Concentration - - Weight 79.4 kg (175 lb) 05/13/2020 8:42 PM CDT Height 180.3 cm (5' 11) 05/13/2020 8:42 PM CDT Body Mass Index 24.41 05/13/2020 8:42 PM CDT Plan of Treatment Not on file [facility]
--- OUTSIDE RECORDS SUMMARY | 2025-03-11 15:28 | XMS_ITS | Encounter Summary ---
Author Organization [facility] Address [address] [place] [address] Care Team Providers Care Desulphurizer Operator Name Role Phone German Black MD Primary Care Provider [phone] German Black MD Unavailable Encounter Details Date Type Department Care Team (Late st Contact Info) Description 02/26/2024 MyC Medical Advice [address] [phone] Candy Ta Social History Tobacco Use Types Packs/Day Years Used Date Smoking Tobacco: Never Smokeless Tobacco: Never Alcohol Use Standard Drinks/Week Comments Yes 0 (1 standard drink = 0.6 oz pur e alcohol) occ PHQ-2 Answer Date Recorded PHQ-2 Score 0 12/29/2022 Adolescent Education Answer Date Record ed Getting [...] AM CDT 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
--- OUTSIDE RECORDS SUMMARY | 2025-03-11 15:28 | XMS_ITS | Encounter Summary ---
Author Organization [facility] Address [address] [place] [address] Care Team Providers Care Regional Vice President Life Sales Name Role Phone German Black MD Primary Care Provider German Black MD Unavailable Encounter Details Date Type Department Care Team (Late st Contact Info) Description 07/01/2020 MyC Medical Advice [facility] [id number] [place] [phone] German [place] [id number] [place] [address] Social History Tobacco Use Types Packs/Day Years Used Date Smoking Tobacco: Never Smokeless Tobacco: Never Alcohol Use Standard Drinks/Week Comments Yes 0 (1 standard drink = 0.6 oz pur e alcohol) occ PHQ-2 Answer Date Recorded PHQ-2 Score 0 06/30/2020 Sex and Gender Information Value Date Recorded Sex Assigned at Male 05/25/2020 5:59 AM CDT 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
[2025-03-11 15:42] VITALS: BP 161/79; PULSE 90; RESP 18; TEMP 36.3; O2SAT 95; BMI 25.1
--- NOTE | 2025-03-11 16:13 | CRLHL7_ITS ---
For Patients: As a result of the Cures Act, medical imaging exams and procedure reports are released immediately into your electronic medical record. You may view this report before your referring provider. If you have questions, please contact your health care provider. INDICATION: Dog bite. TECHNIQUE: Right elbow two views. COMPARISON: None. FINDINGS: No acute fracture or dislocation. No other osseous abnormality. Multifocal areas of soft tissue irregularity and gas consistent with underlying injury. No radiopaque foreign body evident. IMPRESSION: No acute osseous abnormality or radiopaque foreign body. Dictated by Wilberto Nelson MD @ 03/11/2025 4:51:23 PM (Electronically Signed)
--- NOTE | 2025-03-11 17:30 | ED.GENADULT ---
HPI - General Adult General Chief complaint: Animal Bite Stated complaint: dog bite R arm Time Seen by Provider: 03/11/25 15:57 History of Present Illness HPI narrative: Very pleasant 54-year-old gentleman presenting to the ER today with his for evaluation of wounds on his right elbow and right forearm. He suffered a dog bite from his own dog (named ?Kev) this afternoon. His dog is a rescue but has been with the family for a few years. Dog has no history of aggression or biting. The dog is up-to-date on shots, including rabies. Today he was trying to pet the dog when it lunged and bit him on the right forearm. He and his are trying to decide what to do about the dog's behavior given this unprovoked aggression. He is generally healthy. He believes is up-to-date with his tetanus. He has no history of immunosuppression or diabetes or cancer. He is not anticoagulate He suffered a dog bite wounds to his elbow and forearm. The dog's front teeth bit onto the volar surface of his forearm and he suffered a laceration in the antecubital fossa that is about 5 cm from side to side. Also a smaller 2-3 cm laceration on the volar surface. He has 3 smaller lacerations on the dorsal surface of the forearm/proximal ulna. He had dark red blood oozing of fluid from the large wound on his antecubital fossa. He has a lot of pain and pressure in his forearm. He is able to move his elbow and forearm. He has some numbness and tingling in the right hand 2nd and 3rd digits. No trouble moving his fingers. Related Data Home Medications ?Medication ?Instructions ?Recorded ?Confirmed amlodipine 06/29/23 Previous Rx's ?Medication ?Instructions ?Recorded amoxicillin 875 mg-potassium 1 tab PO Q12H #10 tabs 03/11/25 clavulanate 125 mg tablet Allergies Allergy/AdvReac Type Severity Reaction Status Date / Time No Known Drug Allergies Allergy Verified 03/11/25 15:47 PFSH PFSH Social History Smoking Status: Never smoker How often do you have a drink containing alcohol: 2-4 times a month How many standard drinks containing alcohol do you have on a typical day: 1 or 2 AUDIT-C Alcohol total score: 2 Non-prescribed substance use: denies use Exam Narrative: Exam Narrative: Constitutional: Appears well-developed and well-nourished. Alert. Conversant. Non toxic. HENT: Head: Atraumatic. Nose: Nose normal. Mouth/Throat: Oral mucosa is clear and moist. no trismus. Pharynx normal. Tonsils symmetric. No tonsillar enlargement, erythema, or exudate. Eyes: Conjunctivae normal. EOM normal. Pupils equal, round, and reactive to light. No scleral icterus. Neck: Normal range of motion. Neck supple. No tracheal deviation present. Cardiovascular: Normal rate, regular rhythm. No gallop. No friction rub. No murmur heard. Symmetric radial artery pulses . Normal Pito's test. Pulmonary/Chest: Effort normal. No stridor. No respiratory distress. Musculoskeletal: RUE: Normal range of motion in his shoulder, elbow. Normal pronation and supination of the forearm. Normal flexion extension of the wrist. There are multiple dog bite lacerations around the elbow and proximal forearm. 1. He has a roughly 5 cm laceration running perpendicular to the axis of the arm right in the antecubital fossa. This does open into the deep subcutaneous tissue. Inspected in a bloodless field and not see any foreign body. No evidence for any exposed tendon injury or vascular injury. There is a small of amount of dark red venous oozing but no arterial bleeding. This does not appear to involve the elbow joint space. 2. He has a smaller 1 cm stellate laceration just to the radial side of the antecubital fossa. No foreign body. 3. He has a 2nd 1.5 cm laceration that is probably 4-5 cm distal from the antecubital fossa on the mid volar forearm. No foreign body. 4. He has a 1.5 cm laceration on the dorsal ulna about 4-5 cm distal to the olecranon process up. 5. He has 2 other small 5-6 mm puncture wounds on the dorsum of the proximal forearm. LUE: Normal range of motion. No tenderness. No deformity RLE: Normal range of motion. No edema. No tenderness. No deformity LLE: Normal range of motion. No edema. No tenderness. No deformity Neurological: Alert and oriented to person, place, and time. Normal strength. CN II-VII intact. No sensory deficit. GCS eye subscore is 4. GCS verbal subscore is 5. GCS motor subscore is 6. Normal coordination . He has subjective paresthesias in the right hand median nerve distribution. Intact finger abduction and adduction. Intact wrist and finger extension. Intact thumb opposition, thumb and finger opposition, thumb and pinky opposition. Normal cap refill in all digits of the hand. Intact sensory function in the radial and ulnar nerve distributions. Skin: Skin is warm and dry. No rash noted. No pallor. Normal capillary refill. Psychiatric: Normal mood. Normal affect. Const: Vital Signs, click to edit/add: Vital Signs - 24 hr 03/11/25 15:42 Temperature 97.4 F L Pulse Rate [Right Pulse Oximeter] 90 Respiratory Rate 18 Blood Pressure [Le ft Upper Arm] 161/79 H Pulse Oximetry 95 Oxygen Delivery Me thod Room Air Course Course ED Course: Patient presents to the ER today with multiple wounds on his right forearm and elbow from a dog bite. Clinical exam concerning for median nerve injury the time of presentation. X-rays obtained and are negative for any radiopaque foreign body or any signs of bite justin on the bones. Discussed with Orthopedics, Dr. Amos who recommends that we start on prophylactic antibiotics and close the wound here in the ER. He will have the patient follow up in ortho clinic for recheck in the next couple of days. He suspects, given the absence of any motor deficit in the median nerve, that this might just be a contusion to the nerve in my resolve over the next few days. However if there is residual median nerve dysfunction, Orthopedics can diagnose and treat. The patient is up-to-date with his tetanus, less than 5 years ago. The dog is up-to-date with rabies. Will start on Augmentin here in the ER for wound prophylaxis. Prescriptions for Augmentin 875/125 mg b.i.d. for 5 days. After local anesthesia with 0.25% bupivacaine-total of 18 mL, we did do copious irrigation with about 750 mL of sterile water. Vital Signs Vital signs: Initial Vital Signs Temperature 97.4 F L 03/11/25 15:42 Temperature Source Temporal Artery Scan 03/11/25 15:42 Pulse Rate 90 03/11/25 15:42 Pulse Rhythm Regular 03/11/25 15:42 Pulse Strength 3+ Normal 03/11/25 15:42 Respiratory Rate 18 03/11/25 15:42 Blood Pressure 161/79 H 03/11/25 15:42 Blood Pressure Mean 106 H 03/11/25 15:42 Blood Pressure Position Sitting 03/11/25 15:42 Pulse Oximetry 95 03/11/25 15:42 Oxygen Delivery Method Room Air 03/11/25 15:42 Vital Signs Temperature 97.4 F L 03/11/25 15:42 Pulse Rate 90 03/11/25 15:42 Respiratory Rate 18 03/11/25 15:42 Blood Pressure 161/79 H 03/11/25 15:42 Pulse Oximetry 95 03/11/25 15:42 Oxygen Delivery Method Room Air 03/11/25 15:42 Temperature 97.4 F L 03/11/25 15:42 Pulse Rate 90 03/11/25 15:42 Respiratory Rate 18 03/11/25 15:42 Blood Pressure 161/79 H 03/11/25 15:42 Pulse Oximetry 95 03/11/25 15:42 Oxygen Delivery Method Room Air 03/11/25 15:42 Medications Administered Medications: Discontinued Medications Generic Name Dose Route Start Last Admin Trade Name Esmer PRN Reason Stop Dose Admin Amoxicillin/Clavulanate Potassium 875 mg 03/11/25 17:36 03/11/25 18:39 Amoxicillin/Clavulanate 875 Mg/125 Mg Tablet PO 03/11/25 17:37 875 mg ONCE ONE Administration Medical Decision Making MDM Narrative Medical decision making narrative: Findings and exam are consistent with an dog bite induced lacerations to his right elbow and forearm which were repaired as noted above. There is no evidence at this time to suggest any associated fracture or foreign body. There is no evidence to suggest tendon or arterial injury but were suspicious for a right median nerve injury. Because of the depth and complexity these wounds, even after copious irrigation here in the ER we are going to start the patient on prophylactic Augmentin. Discussed the median nerve injury with Orthopedics and they will see the patient in clinic within the next 2-3 days for wound check and re-evaluation.. The patient is to follow up for ultimately suture removal as instructed in 10 days. Indications to seek urgent reevaluation and signs of infection (including but not limited to increasing pain, redness, swelling, fevers, and drainage) were reviewed. Tetanus is up-to-date. The dog is up-to-date on its rabies. An understanding of the discharge instructions and need for follow up were verbally confirmed. Imaging Data XR elbow: Attestation: I have reviewed the pertinent imaging results. Radiologist's impression: IMPRESSION: No acute osseous abnormality or radiopaque foreign body. Discharge Plan Discharge Clinical Impression: Dog bite, Arm laceration, Median nerve injury Patient Disposition: Home, Self-Care Condition: Stable Instructions: Animal Bite (ED), Laceration (ED) Additional Instructions: As we discussed, please clean the wound gently once per day with warm water and gauze. Try not to submerge the wound under water. After the wound is clean, dab it dry with clean gauze and then reapply antibiotic ointment and dressing every day. Watch the wound for signs of infection such as redness, swelling, or pus draining from the wound. If you have any concerns, please come back to the emergency department right away. Please continue on the preventative antibiotics to help prevent infection. Use Tylenol or ibuprofen as needed for pain. We are concerned about the numbness and tingling down your forearm and into the fingers of your hand. I suspect this reflects an injury to the median nerve at your elbow. Please fol the low-up with the [facility] in and 2-3 days for a wound check and to recheck your median nerve. To schedule your ER follow-up appointment you can call [phone]. Please follow-up with your doctor (or with the Ortho Clinic) in 10 days to have the stitches removed. Prescriptions: New amoxicillin-pot clavulanate 875-125 mg tablet 1 tab PO Q12H Qty: 10 0RF No Action amlodipine Follow Up/Referrals: Provider,Not a Local [Primary Care Provider, Family Practice] Stand Alone Forms: [facility] Info Instructions Procedures Laceration Right elbow/antecubital fossa laceration: Verification/time out: correct patient and correct site Side (If applicable): right Size (cm): 5 Description: irregular Depth: involves muscle layer Local Anesthetic: bupivacaine 0.25% Pre-repair: wound explored, irrigated extensively and deep structures intact (Save for suspected median nerve injury) Skin layer closed with: nylon Size (cm): 5-0 Number of sutures: 6 Technique: simple, interrupted Right volar forearm laceration-2 cm: Pre procedure diagnosis: Right volar forearm laceration Verification/time out: correct patient and correct site Side (If applicable): right Size (cm): 2 Description: linear Depth: simple, single layer Local Anesthetic: bupivacaine 0.25% Pre-repair: wound explored, irrigated extensively and deep structures intact Skin layer closed with: nylon Size (cm): 5-0 Number of sutures: 3 Technique: simple, interrupted Right antecubital laceration-1 cm, stellate: Verification/time out: correct patient and correct site Side (If applicable): right Size (cm): 1 Description: stellate Depth: simple, single layer Local Anesthetic: bupivacaine 0.25% Pre-repair: wound explored, irrigated extensively and deep structures intact Skin layer closed with: nylon Size (cm): 5-0 Number of sutures: 3 Technique: simple, interrupted Right dorsal proximal ulna laceration: Verification/time out: correct patient and correct site Side (If applicable): right Size (cm): 2 Description: linear Depth: simple, single layer Local Anesthetic: bupivacaine 0.25% Pre-repair: wound explored, irrigated extensively and deep structures intact Skin layer closed with: nylon Size (cm): 5-0 Number of sutures: 3 Technique: simple, interrupted
== END 2025-03-11 18:59 | disposition home or self-care (01) ==
PROVIDERS: Emergency Provider Emergency Medicine
DX: S51.811A Laceration without foreign body of right forearm, initial encounter (principal); S51.011A Laceration without foreign body of right elbow, initial encounter; W54.0XXA Bitten by dog, initial encounter
CPT/HCPCS: 12004; 73070; 99283; A9270